=== PATIENT | female | born 1990 | race Caucasian/White ===

== ENCOUNTER 2023-08-18 16:04 | Observation (INO) | payer BC, SELFPAY ==
[2023-08-18 16:17] VITALS: BP 138/81; BMI 29.9
== END 2023-08-18 20:23 | disposition home or self-care (01) ==
LOC: LDRP 16:04
PROVIDERS: ADMITTING PHYSICIAN Obstetrics & Gynecology
DX: O48.0 Post-term pregnancy (principal); Z3A.40 40 weeks gestation of pregnancy
CPT/HCPCS: 36415; 76815; 76819; 86850; 86900; 86901; G0378

== ENCOUNTER 2023-08-21 08:13 | Observation (INO) | payer BC, SELFPAY ==
[2023-08-21 08:17] VITALS: BP 123/81; BMI 29.9
== END 2023-08-21 09:25 | disposition home or self-care (01) ==
LOC: LDRP 08:13
PROVIDERS: ADMITTING PHYSICIAN Obstetrics & Gynecology
DX: O47.1 False labor at or after 37 completed weeks of gestation (principal); O48.0 Post-term pregnancy; Z3A.41 41 weeks gestation of pregnancy
CPT/HCPCS: G0378

== ENCOUNTER 2023-08-23 19:01 | Inpatient (IN) | payer BC, SELFPAY ==
[2023-08-23 19:04] VITALS: BMI 29.9
[2023-08-23 19:37] VITALS: BP 129/83
[2023-08-23 19:56] LABS: % Basophils 0.3 % (0-2); % Eosinophils 0.5 % (0-6); % Immature Granulocytes 1.4 % (0-0.5); % Lymphocytes 17.2 % (20.5-51.1); % Monocytes 5.6 % (1.7-9.3); Absolute Basophils 0.1 10^3/uL (0-0.2); Absolute Eosinophils 0.1 10^3/uL (0-0.7); Absolute Immature Granulocytes 0.2 10^3/uL (0-0.05); Absolute Lymphocytes 2.5 10^3/uL (1.2-3.4); Absolute Monocytes 0.8 10^3/uL (0.1-0.6); Absolute Neutrophils 11.1 10^3/uL (1.4-6.5); Hematocrit 36.9 % (37.0-47.0); Hemoglobin 13.3 g/dL (12.0-16.0); Mean Corpuscular Hgb 31.4 pg (27.0-31.0); Nucleated Red Blood Cells % 0 %; Platelet Count 296 10^3/uL (130-400); Red Blood Cell Count 4.24 10^6/uL (4.20-5.40); Red Cell Dist. Width 14.8 % (11.5-14.5); White Blood Cell Count 14.8 10^3/uL (4.8-10.8)
[2023-08-23] MEDS: CYTOTEC 25 MICROGRAM VAG (20:50)
[2023-08-24] MEDS: CYTOTEC 50 MICROGRAM PO (00:45)
[2023-08-24] MEDS: LR 1000 IV ×2 (05:06→10:18)
[2023-08-24] MEDS: CYTOTEC PO ×5 (05:37→22:05)
[2023-08-24] MEDS: PITOCIN 30 UNITS/NSS 500 ML IV ×2 (08:54→20:48)
[2023-08-24] MEDS: SUBLIMAZE 100 MCG EPIDURAL (11:53)
[2023-08-24] MEDS: FENTANYL/BUPIVACAINE 100 EPIDURAL ×2 (11:54→19:29)
[2023-08-24] MEDS: ZOFRAN 4 MG IV (19:16)
[2023-08-24] MEDS: CYTOTEC 800 MCG RECTAL (20:58)
[2023-08-25 05:15] LABS: Hematocrit 36.9 % (37.0-47.0); Hemoglobin 12.5 g/dL (12.0-16.0)
[2023-08-25] MEDS: PRENATAL PLUS 1 TABLET PO (08:23)
[2023-08-25 12:39] LABS: Syphilis/T. pallidum Ab Reflex Negative (Negative)
[2023-08-25] MEDS: MOTRIN 600 MG PO (20:42)
[2023-08-26] MEDS: PRENATAL PLUS 1 TABLET PO (08:01)
[2023-08-26] MEDS: SENOKOT-S 1 TABLET PO (08:01)
[2023-08-26] MEDS: MOTRIN 600 MG PO (08:02)
== END 2023-08-26 12:40 | disposition home or self-care (01) | DRG 807 ==
LOC: LDRP 19:01
PROVIDERS: Obstetrics & Gynecology; ADMITTING PHYSICIAN Obstetrics & Gynecology
PROC: 3E0P7VZ Introduction of Hormone into Female Reproductive, Via Natural or Artificial Opening (ICD-10-PCS; 2023-08-23)
PROC: 3E033VJ Introduction of Other Hormone into Peripheral Vein, Percutaneous Approach (ICD-10-PCS; 2023-08-23)
PROC: 0HQ9XZZ Repair Perineum Skin, External Approach (ICD-10-PCS; 2023-08-24)
PROC: 10E0XZZ Delivery of Products of Conception, External Approach (ICD-10-PCS; 2023-08-24)
DX: O48.0 Post-term pregnancy (principal); Z37.0 Single live birth; Z3A.41 41 weeks gestation of pregnancy; O62.2 Other uterine inertia; O99.284 Endocrine, nutritional and metabolic diseases complicating childbirth; E28.2 Polycystic ovarian syndrome; G43.909 Migraine, unspecified, not intractable, without status migrainosus
CPT/HCPCS: 85014; 85018; 85025; 86780; 86850; 86900; 86901

== ENCOUNTER 2023-11-16 02:31 | Emergency (ER) | payer BC, SELFPAY ==
[2023-11-16 02:32] VITALS: BMI 28.1
[2023-11-16 02:33] VITALS: BP 126/84
--- NOTE | 2023-11-16 03:12 | ED.GENMED ---
History of Present Illness
<SELVIN Garrido - Last Filed: 11/16/23 03:25>
General
Chief Complaint: Abdominal Pain
Source: patient
Exam Limitations: none
Time Seen by Provider: 11/16/23 03:01
Travel History
Have you had any contact with someone who has COVID-19?: No
Do you have any symptoms of coronavirus? Fever > 100 degrees, chills, cough, shortness of breath, sore throat, loss of taste or smell, muscle aches, or headache?: No
History of Present Illness
History of Present Illness:
33 YO F with no significant PMH presents today with complaints of right lower quadrant pain x 1 hour that woke her up from sleep. Pt states it radiated into her right lower back. Her pain was originally a 7 or 8/10. She states her pain is now a
2/10. Her back is not bothering her at the moment. Last BM was today. Pt admitted to having GERD during . Pt just had a baby in August and states her last menstrual period was sometime in October.
Denies surgical history.
Denies dysuria or polyuria.
Denies history of nephrolithiasis.
Denies CP, SOB, N, V, and diarrhea.
Review of Systems
<SELVIN Garrido - Last Filed: 11/16/23 03:25>
Review of Systems
Constitutional: Reports no symptoms
EENT: Reports no symptoms
Respiratory: Reports no symptoms
Cardiac: Reports no symptoms
ABD/GI: Reports abdominal pain
: Reports no symptoms
Musculoskeletal: Reports no symptoms
Skin: Reports no symptoms
Phy Exam
<SELVIN Garrido - Last Filed: 11/16/23 03:25>
Physical Exam
Physical Exam:
Mild RLQ pain with palpation
Normal S1 and S2, Breath sounds are clear and equal B/L
General Physical Exam
General Presentation: well appearing
General age: appears stated age
General Skin: warm
General Habitus: normal
General Mental: alert
General Hydration: appears well hydrated
Cardiovascular Exam
Cardiovascular Exam: regular rate/rhythm
Pulmonary Exam
Pulmonary Exam: lungs clear and no respiratory distress
Gastrointestinal Exam
Gastrointestinal Exam: normal bowel sounds, soft, non distended and no cva tenderness
Course
<SELVIN Garrido - Last Filed: 11/16/23 03:25>
Orders/Labs/Results
Orders:
Orders
11/16/23 03:28
Test Result ONCE
11/16/23 03:32
HCG, Urine Qualitative Screen Urgent
Date Specimen was Collected: 11/16/23
Time Specimen was Collected: 03:30
Urinalysis Reflex To Culture Urgent
Date Specimen was Collected: 11/16/23
Time Specimen was Collected: 03:30
Urine Microscopic Reflex Cult Urgent
Urine Culture Urgent
DEX Source: U
Specimen Description:
Date Specimen was Collected: 11/16/23
Time Specimen was Collected: 03:30
11/16/23 04:20
US Pelvis W Transvag Combined Urgent
Comment:
Reason For Exam: acute severe R pelvic pain
Abnormal Lab Results
11/16/23
03:32
Leukocyte Esterase Rfl Trace A
(Negative)
Urine Bacteria (Reflex) Moderate A
(Negative)
Vital Signs
Initial and Last Documented VS:
Initial Vital Signs
Temp Pulse Resp BP Pulse Ox
98.5 F 84 16 126/84 99
11/16/23 02:33 11/16/23 02:33 11/16/23 02:33 11/16/23 02:33 11/16/23 02:33
Last Documented Vital Signs
Temp Pulse Resp BP Pulse Ox
98.5 F 84 16 104/75 93
11/16/23 02:33 11/16/23 02:33 11/16/23 02:33 11/16/23 06:00 11/16/23 06:00
<Christy Rausch, DO - Last Filed: 11/16/23 06:32>
Orders/Labs/Results
Orders:
Orders
11/16/23 03:28
Test Result ONCE
11/16/23 03:32
HCG, Urine Qualitative Screen Urgent
Date Specimen was Collected: 11/16/23
Time Specimen was Collected: 03:30
Urinalysis Reflex To Culture Urgent
Date Specimen was Collected: 11/16/23
Time Specimen was Collected: 03:30
Urine Microscopic Reflex Cult Urgent
Urine Culture Urgent
DEX Source: U
Specimen Description:
Date Specimen was Collected: 11/16/23
Time Specimen was Collected: 03:30
11/16/23 04:20
US Pelvis W Transvag Combined Urgent
Comment:
Reason For Exam: acute severe R pelvic pain
Abnormal Lab Results
11/16/23
03:32
Leukocyte Esterase Rfl Trace A
(Negative)
Urine Bacteria (Reflex) Moderate A
(Negative)
Vital Signs
Initial and Last Documented VS:
Initial Vital Signs
Temp Pulse Resp BP Pulse Ox
98.5 F 84 16 126/84 99
11/16/23 02:33 11/16/23 02:33 11/16/23 02:33 11/16/23 02:33 11/16/23 02:33
Last Documented Vital Signs
Temp Pulse Resp BP Pulse Ox
98.5 F 84 16 104/75 93
11/16/23 02:33 11/16/23 02:33 11/16/23 02:33 11/16/23 06:00 11/16/23 06:00
<SELVIN Garrido - Last Filed: 11/16/23 03:25>
MDM/Problems Addressed
Differential Diagnosis Includes:
Ovarian cyst, ovarian torsion, appendicitis, UTI
MDM/Problems Addressed:
RLQ pain x 1 hour
<SELVIN Garrido - Last Filed: 11/16/23 03:25>
*Critical Care Note
Total Time (30-74mins, 75-104mins- exclusive of procedures): Not Applicable
<Christy Rausch DO - Last Filed: 11/16/23 06:32>
*Radiology
Radiology exam reviewed: radiology read reviewed
*Pulse Oximetry
Patient hypoxic: no
ED Attending Note
<SELVIN Garrido - Last Filed: 11/16/23 03:25>
-
Portions of this chart may have been created with voice recognition software.� Occasional wrong word or��sound alike� substitutions may have occurred due to the inherent limitations of voice recognition software.
<Christy Rausch DO - Last Filed: 11/16/23 06:32>
ED Attending Note
Patient seen and examined by attending physician: Yes
I performed the substantive portion of visit, reviewed & personally made and approve the management plan that is documented in note by myself or ROBERT.: Yes
I performed a history and physical exam of patient and discussed management with resident, I reviewed resident's note and agree with documented findings and plan of care.: Yes
ED Attending Note:
This is a 33-year-old woman who has history of vaginal , uncomplicated August of this year. Breast-feeding.
Last menstrual period approximately October 22.
She complains of abrupt onset of moderate to severe right lower quadrant, suprapubic pain that radiated to her back that woke her from sleep around 1:30 in the morning. Pain was persistent for approximately 1 hour but has since resolved since
arrival to the ED.
No associated symptoms, no dysuria and urgency and or hematuria, she did attempt to pass a bowel movement without success but denies rectal pain or pressure.
No history of similar episodes in the past. She did not take anything for pain.
GENERAL: Alert , in no apparent distress
EYE: anicteric
NECK: Supple, nontender, no meningismus, no significant adenopathy.
ENT: oral mucosa is moist. No rhinorrhea.
CARDIAC: Regular rate and rhythm. no murmur.
LUNGS: Clear breath sounds bilaterally, no acute respiratory distress, no wheezes/rales/rhonchi
ABDOMEN: Soft, nondistended, without focal tenderness, no r/g, no cvat. normoactive BS.
NEUROLOGICAL: Alert and oriented x3, no focal neuro deficits. Gait is layton and steady.
SKIN: Warm and dry, normal color, skin intact. No rash.
MUSCULOSKELETAL: No C/C/E. peripheral pulses are full and equal b/l. No palpable tenderness.
PSYCH: Normal and appropriate interaction.
Concern for possible ruptured ovarian cyst, Ovarian torsion, right-sided renal colic.
Abdominal exam is benign, nontender.
Will check urinalysis, UCG and continue to observe.
Will consider imaging depending on urine results.
11/16/2023 0630 AM
Urinalysis is unremarkable, moderate bacteria but a contaminated specimen with greater than 30 squamous epithelial cells. Negative for blood.
Pelvic ultrasound shows bilateral peripherally displaced follicles but good flow to both ovaries. There is a small amount of simple free fluid in the pelvis which appears physiologic.
Patient may have ruptured a small ovarian cyst. Other consideration is bowel gas entrapment as cause for lower abdominal pain.
She remains comfortable and pain-free since shortly after arrival to the ED.
Will discharge to home with recommendations to try an NSAID versus heating pad if pain recurs. If these remedies are unsuccessful and if severe pain persist or if accompanied with vomiting, fever or any other worrisome symptom prompt return to the
ED.
Discharge Plan
Departure
Patient Disposition: Home (Routine Discharge)
Date of Disposition: 11/16/23
Time of Disposition: 06:29
Patient with high blood pressure during this ER visit?: No
Condition: Good
Discharge Problem:
Acute pain in female pelvis
Instructions: Ovarian Cyst (DC)
Prescriptions:
No Action
prenat.vits,mishel,fjw-zcmi-mosmv Tablet
1 tab PO DAILY
ibuprofen 200 mg capsule
600 mg PO Q6HPRN PRN (Reason: moderate pain/cramps) Qty: 0 0RF
acetaminophen 325 mg Tablet
650 mg PO Q4HPRN PRN (Reason: mild pain) Qty: 0 0RF
Referrals:
Ashli Simmons DO [Family Provider] - Call in 1-3 days for appt
Interventions
Interventions:
*Risk Screen - Suicide Last Done: 11/16/23 02:33
*General Assessment Last Done: 11/16/23 02:33
*Neglect/Abuse Screening Last Done: 11/16/23 02:33
*ED COVID-19 Vaccine History Last Done: 11/16/23 03:40
RP-Bjqris-Njordbegxs Assessment Last Done: 11/16/23 03:37
Discharge Date and Time
Print Language: INDIAN
[2023-11-16 03:35] VITALS: BP 106/67
[2023-11-16 03:46] LABS: Urine Albumin Negative (Neg - Trace); Urine Bilirubin Negative (Negative); Urine Character Clear (Clear); Urine Color Yellow; Urine Glucose Negative (Negative); Urine Ketone Negative (Negative); Urine Leukocyte Trace (Negative); Urine Nitrite Negative (Negative); Urine Occult Blood Negative (Negative); Urine Specific Gravity 1.015 (<1.030); Urine Urobilinogen Negative (Neg - 1+)
[2023-11-16 03:51] LABS: HCG, Urine Qualitative Screen Negative
[2023-11-16 04:00] VITALS: BP 116/74
[2023-11-16 04:00] LABS: Urine Bacteria Moderate (Negative); Urine Red Blood Cell 0-2 /HPF (0-2); Urine Squamous Cell >30 /LPF (Few)
[2023-11-16 05:00] VITALS: BP 109/84
[2023-11-16 06:00] VITALS: BP 104/75
== END 2023-11-16 06:40 | disposition home or self-care (01) ==
LOC: EMR 02:31
PROVIDERS: EMERGENCY PHYSICIAN Emergency Medicine; FAMILY PHYSICIAN Student in an Organized Health Care Education/Training Program
DX: R10.2 Pelvic and perineal pain (principal); K21.9 Gastro-esophageal reflux disease without esophagitis
CPT/HCPCS: 99284; 76830; 76856; 81003; 81015; 81025; 87086